=== PATIENT | female | born 1990 | race Caucasian/White ===

== ENCOUNTER 2023-11-19 07:25 | Inpatient (IN) ==
[2023-11-19] MEDS ORDERED: LIDOCAINE 1% LOCAL 20 ML VIAL INFIL PRN (07:34)
--- NOTE | 2023-11-19 07:38 | History & Physical Report ---
Date of Service November 19, 2023 Assessment & Plan (1) Encounter for induction of labor: Plan 33 y/o female at 41WGA, here for IOL: Troy bulb out Pitocin AROM as indicated Monitor heart tracing, category 1 Admission and Anticipated Discharge Date Admission Date: November 19, 2023 History of Present Illness Primary Care Provider: NO PCP 33 y/o female currently at 41WGA with an DILCIA 11/12/23 as determined by LMP, who is here for IOL. 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 Had regular appointments with OB Minimal Contractions + movement + some amount of fluid loss through cervical Troy denies Vaginal bleeding External FHT and external uterine monitors used: Category 1 tracing, baseline rate 140, moderate variability, irregular uterine contractions OB Labs: Blood Type A Positive 04/04/23 Antibody Screen NEGATIVE 04/04/23 Hemoglobin 9.1 g/dl (12.0-16.0) L 08/21/23 Hematocrit 28.3 % (37.0-47.0) L 08/21/23 Mean Corpuscular Volume 93.5 fL (80.0-100.0) 04/04/23 Platelet Count 277 K/uL (130-400) 04/04/23 Rubella IgG Antibody Immune (Immune) 04/04/23 Rapid Plasma Reagin Nonreactive (Nonreactive) 04/04/23 Hepatitis B Surface Antigen. NON-REACTIVE (NON-REACTIVE) 04/04/23 Hepatitis C Antibody (EIA) NON-REACTIVE (NON-REACTIVE) 04/04/23 HIV (1&2) Ag and Ab Confirmation NON-REACTIVE (NON-REACTIVE) 04/04/23 Glucose 1 Hour 50 gm Load 90 mg/dl (70-130) 08/21/23 OB Optional Labs: Chlamydia trachomatis RNA Not Detected (NotDetected) 04/04/23 Neisseria gonorrhoeae RNA Not Detected (NotDetected) 04/04/23 Thyroid Stimulating Hormone (TSH) 1.807 uIu/ml (0.300-4.500) 10/04/23 Labs Reviewed: Declines genetics--mln Allergies Allergy/AdvReac Type Severity Reaction Status Date / Time No Known Allergies Allergy Verified 11/18/23 19:20 Home Medications Medication Instructions Recorded Confirmed Type vit 168-iron 27 mg-folic 1 cap PO DAILY 03/27/23 11/19/23 History acid 800 mcg-omega3 235 mg capsule (One-A-Day -1) ferrous sulfate 325 mg (65 mg 325 mg PO DAILY 11/19/23 11/19/23 History iron) tablet (Iron (ferrous sulfate)) Patient History Surgical History [place] teeth extracted Family History Mother , Mother age 49 d/t malignant melanoma Malignant melanoma Aunt Breast cancer, Onset Age: 60 Other Dyslipidemia Hypertension Social History Smoking Status: Former smoker Second Hand Exposure: No; Hx Alcohol Use: No Hx Substance Use: No Preferred Language: Ethiopian Communication Ability: Effective Registered Nurse Obstetrics Required: No Beliefs That Will Affect Care: None marital status: marital status details: Khoa [phone] Current Living Situation: Spouse Current Living Situation Comment: Lives at home with , dog, and chicken. 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 No acute distress Cardiac: Regular rate and rhythm, no murmurs appreciated Respiratory: Lungs clear to auscultation bilaterally, No increased work of breathing Abdominal: Soft, non-tender, non-distended. Bowel sounds present. Gravid uterus. Extremities: No lower extremity edema, calves non-tender bilaterally FHT/Sonoita: Category 1 tracing, baseline rate 140, moderate variability, irregular uterine contractions : 4/75/-2 per attending exam Results & Data Vital Signs (Past 12 Hours) Vital Signs Pulse BP 11/19/23 07:37 88 115/73 Supervising Physician Co-Signing Physician Notes 33 yo G1 at 41 wga presents for late term iol. +FM; denies ctx, LOF, VB. Troy placed last evening. PNI: Pituitary macroadenoma. VSS, Fetus cat 1. Bulb palpated in the vagina and removed, SVE /-2 afterward. Will start pit, gbs neg, epidural prn Resident Activity Tracking Resident Involvement: Resident Care Provided Care Provided: OB Delivery
[2023-11-19 08:16] LABS: Hematocrit (blood only) 33.3 % (37.0-47.0); Hemoglobin 10.8 g/dl (12.0-16.0); Mean Corpuscular Hemoglobin 31.4 pg (25.0-34.0); Mean Corpuscular Hgb Conc 32.4 g/dL (32.0-36.0); Mean Corpuscular Volume 96.8 fL (80.0-100.0); Mean Platelet Volume 10.1 fL (9.4-12.4); Platelet Count 147 K/uL (130-400); RDW Standard Deviation 49.6 fL (36.4-46.3); Red Blood Count 3.44 M/uL (4.20-5.40); White Blood Count 6.12 K/ul (4.8-10.8)
[2023-11-19] MEDS: LACTATED RINGER'S 1,000 ML IV PRN (08:48)
[2023-11-19] MEDS: OXYTOCIN 30 UNITS/NSS 30 UNITS/500 ML BAG IV PRN ×2 (09:01→20:57)
--- NOTE | 2023-11-19 14:24 | Anesthesiology Consultation ---
Date of Service November 19, 2023 Assessment & Plan Chart Review Chart Review: Acceptable Risk for Labor Epidural Consults Requested none History Height/Weight Height: 5 ft 5 in Weight: 83.915 kg Allergies Allergy/AdvReac Type Severity Reaction Status Date / Time No Known Allergies Allergy Verified 11/18/23 19:20 Medications Home Medications Medication Instructions Recorded Confirmed Last Taken vit 168-iron 27 mg-folic 1 cap PO DAILY 03/27/23 11/19/23 11/19/23 acid 800 mcg-omega3 235 mg capsule (One-A-Day -1) ferrous sulfate 325 mg (65 mg 325 mg PO DAILY 11/19/23 11/19/23 11/18/23 iron) tablet (Iron (ferrous sulfate)) Active Medications Generic Name Dose Route Start Last Admin Trade Name Freq PRN Reason Stop Dose Admin Oxytocin 30 units in 500 mls @ 14 mls/hr 11/19/23 07:34 11/19/23 13:00 Pitocin 30 Units/Nss IV 11/21/23 07:33 0.84 units/hr .Q24H PRN 14 mls/hr Labor Induction/Augmentation Titration Protocol 0.84 UNITS/HR Lactated Ringer's 1,000 mls @ 125 mls/hr 11/19/23 07:34 11/19/23 14:20 Lr IV 11/21/23 07:33 999 mls/hr .Q8H PRN Administration L&D Protocol Protocol Past Family History Family History Mother , Mother age 49 d/t malignant melanoma Malignant melanoma Aunt Breast cancer, Onset Age: 60 Other Dyslipidemia Hypertension Past Surgical History Surgical History [place] teeth extracted Social History Smoking Status: Former smoker Hx Alcohol Use: No Hx Substance Use: No Physical Exam Vital Signs Last Vital Signs Temp 36.8 C 11/19/23 13:00 Pulse 70 11/19/23 14:11 Resp 24 11/19/23 13:00 BP 114/68 11/19/23 14:11 Testing Laboratory Results 11/19/23 07:54
[2023-11-19] MEDS ORDERED: diphenhydrAMINE 50 MG/ML VIAL IV PRN (14:25)
[2023-11-19] MEDS ORDERED: SODIUM CHLORIDE 0.9% PF INJ 10 ML VIAL EPI PRN (14:25)
[2023-11-19] MEDS ORDERED: ePHEDrine sulfate 50 MG/ML AMP IV PRN (14:25)
[2023-11-19] MEDS ORDERED: LIDOCAINE 2% MPF LOCAL 5 ML VIAL EPI PRN (14:25)
[2023-11-19] MEDS ORDERED: ROPIVACAINE 0.5% PF 5 MG/ML 20 ML VIAL EPI PRN (14:25)
[2023-11-19] MEDS ORDERED: fentaNYL citrate PF 100 MCG/2 ML VIAL EPI PRN (14:25)
[2023-11-19] MEDS ORDERED: BUPIVACAINE 0.25% PF 30 ML VIAL EPI PRN (14:25)
[2023-11-19] MEDS ORDERED: NALOXONE HCL 0.4 MG/1 ML VIAL/CARP IV PRN (14:25)
[2023-11-19] MEDS ORDERED: NALBUPHINE HCL 5 MG in SYRINGE 0 ML IV PRN (14:25)
[2023-11-19] MEDS ORDERED: NALOXONE HCL 1 MG in SODIUM CHLORIDE 0.9% 1,000 ML IV PRN (14:25)
[2023-11-19] MEDS ORDERED: fentANYL 2 MCG/ML BUPIVacaine 0.125%-NSS 100ML BAG EPI PRN (14:25)
[2023-11-19] MEDS: LIDOCAINE 2%/EPINEPHRINE 1:200,000 20 ML PF ONE (14:49)
[2023-11-19] MEDS: fentANYL 2 MCG/ML BUPIVacaine 0.125%-NSS 100ML BAG ONE (14:49)
--- NOTE | 2023-11-19 15:42 | Labor Progress Brief Note ---
Date of Service November 19, 2023 Subjective comfortable w/ epidural Assessment & Plan (1) Encounter for induction of labor: Plan: 33 yo G1 at 41 wga admitted for late term iol VSS Fetus cat 1 Labor - pit at 14, now s/p arom GBS neg epidural in place Admission and Anticipated Discharge Date Admission Date: November 19, 2023 Physical Exam Genitourinary: Manual OB Exam: + cervical dilation 5 cm, + cervical effacement 70%, + station -1 and + amniotic fluid (arom clear) OB Exam Monitor Tracing: + external FHT monitor used, + external uterine monitor used (q4) and + category I (135-140/mod/+accel/-decel) Results & Data Vital Signs (Past 12 Hours) Vital Signs Temp Pulse Resp BP Pulse Ox 11/19/23 15:34 100 11/19/23 15:34 106 H 11/19/23 15:34 80 11/19/23 15:34 103/62 11/19/23 15:29 98 11/19/23 15:29 122 H 11/19/23 15:28 67 11/19/23 15:28 100/62 11/19/23 15:24 100 11/19/23 15:24 61 11/19/23 15:24 103/63 11/19/23 15:20 66 11/19/23 15:20 101/61 11/19/23 15:19 100 11/19/23 15:19 67 11/19/23 15:15 68 11/19/23 15:15 102/58 L 11/19/23 15:14 100 11/19/23 15:14 69 11/19/23 15:09 100 11/19/23 15:09 70 11/19/23 15:08 71 11/19/23 15:08 100/62 11/19/23 15:04 100 11/19/23 15:04 96 H 11/19/23 15:03 73 11/19/23 15:03 107/65 11/19/23 15:01 75 11/19/23 15:01 109/63 11/19/23 14:59 100 11/19/23 14:59 78 11/19/23 14:59 71 11/19/23 14:59 103/62 11/19/23 14:57 75 11/19/23 14:57 102/63 11/19/23 14:55 75 11/19/23 14:55 104/64 11/19/23 14:54 100 11/19/23 14:54 74 11/19/23 14:53 74 11/19/23 14:53 108/66 11/19/23 14:51 81 11/19/23 14:51 102/64 11/19/23 14:49 100 11/19/23 14:49 87 11/19/23 14:49 87 11/19/23 14:49 102/66 11/19/23 14:47 79 11/19/23 14:47 116/67 11/19/23 14:44 100 11/19/23 14:44 75 11/19/23 14:44 118/60 11/19/23 14:41 83 11/19/23 14:41 113/66 11/19/23 14:39 100 11/19/23 14:39 84 11/19/23 14:39 112/71 11/19/23 14:34 100 11/19/23 14:34 90 11/19/23 14:29 100 11/19/23 14:29 77 11/19/23 14:11 70 11/19/23 14:11 114/68 11/19/23 13:11 65 11/19/23 13:11 108/69 11/19/23 13:00 71 11/19/23 13:00 98.2 F 71 24 118/63 11/19/23 12:11 68 11/19/23 12:11 107/71 11/19/23 11:46 99.1 F 61 104/68 11/19/23 11:46 61 11/19/23 11:46 104/68 11/19/23 10:10 74 11/19/23 10:10 108/69 11/19/23 10:00 76 11/19/23 10:00 104/66 11/19/23 09:01 67 11/19/23 09:01 102/69 11/19/23 07:37 99.1 F 88 18 115/73 Coding Level of Care Code None Diagnoses Encounter for induction of labor Z34.90
[2023-11-19] MEDS: SODIUM CHLORIDE 0.9% PF INJ 10 ML VIAL ONE (18:18)
[2023-11-19] MEDS: ePHEDrine sulfate 50 MG/ML AMP ONE (18:18)
[2023-11-19] MEDS: fentaNYL citrate PF 100 MCG/2 ML VIAL ONE (18:18)
[2023-11-19] MEDS: BUPIVACAINE 0.25% PF 30 ML VIAL ONE (18:18)
[2023-11-19] MEDS: BUPIVACAINE 0.25% PF 30 ML VIAL EPI STA (18:29)
[2023-11-19] MEDS: fentaNYL citrate PF 100 MCG/2 ML VIAL EPI STA (18:29)
[2023-11-19] MEDS: SODIUM CHLORIDE 0.9% PF INJ 10 ML VIAL EPI STA (18:30)
[2023-11-19] MEDS: LIDOCAINE 2%/EPINEPHRINE 1:200,000 20 ML PF EPI STA (18:30)
--- NOTE | 2023-11-19 19:54 | Labor Progress Brief Note ---
Date of Service November 19, 2023 Subjective just pushed button to get a little more comfortable, had tried a few pushes earlier but then opted to labor down Assessment & Plan (1) Encounter for induction of labor: Plan: 33 yo G1 at 41 wga admitted for late term iol VSS Fetus cat 1 Labor - pit at 16 and complete, had to push button to get a little mroe comfortable while laboring down after few attempts at pushing. Laying on other side now to try to get more comfortable and then re-eval to start pushing GBS neg epidural in place Admission and Anticipated Discharge Date Admission Date: November 19, 2023 Physical Exam Genitourinary: OB Exam Monitor Tracing: + external FHT monitor used, + external uterine monitor used (q2-4) and + category I (140/mod/+accel/-decel) SVE complete/+1 small amount of blood seen on chux with a small clot Results & Data Vital Signs (Past 12 Hours) Vital Signs Temp Pulse Resp BP Pulse Ox 11/19/23 19:49 100 11/19/23 19:49 76 11/19/23 19:44 100 11/19/23 19:44 81 11/19/23 19:44 106/69 11/19/23 19:39 100 11/19/23 19:39 89 11/19/23 19:34 100 11/19/23 19:34 79 11/19/23 19:30 82 11/19/23 19:30 108/70 11/19/23 19:29 100 11/19/23 19:29 81 11/19/23 19:24 100 11/19/23 19:24 84 11/19/23 19:19 100 11/19/23 19:19 88 11/19/23 19:14 100 11/19/23 19:14 79 11/19/23 19:14 83 11/19/23 19:14 114/56 L 11/19/23 19:09 100 11/19/23 19:09 81 11/19/23 19:04 100 11/19/23 19:04 77 11/19/23 19:03 18 11/19/23 19:03 97.9 F 18 11/19/23 18:59 100 11/19/23 18:59 89 11/19/23 18:59 81 11/19/23 18:59 105/64 11/19/23 18:54 100 11/19/23 18:54 86 11/19/23 18:49 100 11/19/23 18:49 88 11/19/23 18:45 76 11/19/23 18:45 114/70 11/19/23 18:44 100 11/19/23 18:44 77 11/19/23 18:39 100 11/19/23 18:39 76 11/19/23 18:34 100 11/19/23 18:34 85 11/19/23 18:29 100 11/19/23 18:29 95 H 11/19/23 18:29 100/74 11/19/23 18:24 100 11/19/23 18:24 77 11/19/23 18:19 100 11/19/23 18:19 85 11/19/23 18:15 74 11/19/23 18:15 105/60 11/19/23 18:14 100 11/19/23 18:14 69 11/19/23 18:09 98 11/19/23 18:09 130 H 11/19/23 18:06 93 11/19/23 18:06 99 H 11/19/23 18:04 100 11/19/23 18:04 74 11/19/23 17:59 18 11/19/23 17:59 99.0 F 18 11/19/23 17:59 100 11/19/23 17:59 73 11/19/23 17:59 111/69 11/19/23 17:55 92 11/19/23 17:55 80 11/19/23 17:54 97 11/19/23 17:54 81 11/19/23 17:54 113/73 11/19/23 17:49 100 11/19/23 17:49 67 11/19/23 17:44 100 11/19/23 17:44 68 11/19/23 17:39 100 11/19/23 17:39 65 11/19/23 17:35 68 11/19/23 17:35 100/58 L 11/19/23 17:34 100 11/19/23 17:34 67 11/19/23 17:29 100 11/19/23 17:29 69 11/19/23 17:24 100 11/19/23 17:24 68 11/19/23 17:19 100 11/19/23 17:19 65 11/19/23 17:14 97 11/19/23 17:14 62 11/19/23 17:14 91 11/19/23 17:14 70 11/19/23 17:10 18 11/19/23 17:10 18 11/19/23 17:09 100 11/19/23 17:09 67 11/19/23 17:04 100 11/19/23 17:04 69 11/19/23 16:59 100 11/19/23 16:59 66 11/19/23 16:54 100 11/19/23 16:54 72 11/19/23 16:49 100 11/19/23 16:49 72 11/19/23 16:44 100 11/19/23 16:44 60 11/19/23 16:39 100 11/19/23 16:39 64 11/19/23 16:34 100 11/19/23 16:34 66 11/19/23 16:29 100 11/19/23 16:29 63 11/19/23 16:29 62 11/19/23 16:29 99/58 L 11/19/23 16:24 100 11/19/23 16:24 69 11/19/23 16:19 100 11/19/23 16:19 67 11/19/23 16:15 65 11/19/23 16:15 98/60 L 11/19/23 16:14 100 11/19/23 16:14 65 11/19/23 16:10 18 11/19/23 16:10 18 11/19/23 16:09 100 11/19/23 16:09 66 11/19/23 16:04 99 11/19/23 16:04 70 11/19/23 16:00 67 11/19/23 16:00 98/59 L 11/19/23 15:59 99 11/19/23 15:59 66 11/19/23 15:55 18 11/19/23 15:55 18 11/19/23 15:54 99 11/19/23 15:54 68 11/19/23 15:49 100 11/19/23 15:49 69 11/19/23 15:44 99 11/19/23 15:44 67 11/19/23 15:44 67 11/19/23 15:44 99.1 F 66 18 100/59 L 99 11/19/23 15:40 18 11/19/23 15:40 18 11/19/23 15:39 100 11/19/23 15:39 77 11/19/23 15:34 100 11/19/23 15:34 106 H 11/19/23 15:34 80 11/19/23 15:34 103/62 11/19/23 15:29 98 11/19/23 15:29 122 H 11/19/23 15:28 67 11/19/23 15:28 100/62 11/19/23 15:25 18 11/19/23 15:25 18 11/19/23 15:24 100 11/19/23 15:24 61 11/19/23 15:24 103/63 11/19/23 15:20 66 11/19/23 15:20 101/61 11/19/23 15:19 100 11/19/23 15:19 67 11/19/23 15:15 68 11/19/23 15:15 102/58 L 11/19/23 15:14 100 11/19/23 15:14 69 11/19/23 15:10 18 11/19/23 15:10 18 11/19/23 15:09 100 11/19/23 15:09 70 11/19/23 15:08 71 11/19/23 15:08 100/62 11/19/23 15:04 100 11/19/23 15:04 96 H 11/19/23 15:03 73 11/19/23 15:03 107/65 11/19/23 15:01 75 11/19/23 15:01 109/63 11/19/23 14:59 100 11/19/23 14:59 78 11/19/23 14:59 71 11/19/23 14:59 103/62 11/19/23 14:57 75 11/19/23 14:57 102/63 11/19/23 14:55 20 11/19/23 14:55 20 11/19/23 14:55 75 11/19/23 14:55 104/64 11/19/23 14:54 100 11/19/23 14:54 74 11/19/23 14:53 74 11/19/23 14:53 108/66 11/19/23 14:51 81 11/19/23 14:51 102/64 11/19/23 14:50 20 11/19/23 14:50 20 11/19/23 14:49 100 11/19/23 14:49 87 11/19/23 14:49 87 11/19/23 14:49 102/66 11/19/23 14:47 79 11/19/23 14:47 116/67 11/19/23 14:45 20 11/19/23 14:45 20 11/19/23 14:44 100 11/19/23 14:44 75 11/19/23 14:44 118/60 11/19/23 14:41 83 11/19/23 14:41 113/66 11/19/23 14:39 100 11/19/23 14:39 84 11/19/23 14:39 112/71 11/19/23 14:34 100 11/19/23 14:34 90 11/19/23 14:29 100 11/19/23 14:29 77 11/19/23 14:11 70 11/19/23 14:11 114/68 11/19/23 13:11 65 11/19/23 13:11 108/69 11/19/23 13:00 71 11/19/23 13:00 98.2 F 71 24 118/63 11/19/23 12:11 68 11/19/23 12:11 107/71 11/19/23 11:46 99.1 F 61 104/68 11/19/23 11:46 61 11/19/23 11:46 104/68 11/19/23 10:10 74 11/19/23 10:10 108/69 11/19/23 10:00 76 11/19/23 10:00 104/66 11/19/23 09:01 67 11/19/23 09:01 102/69 Coding Level of Care Code None Diagnoses Encounter for induction of labor Z34.90
[2023-11-19] MEDS: cefOXitin 2,000 MG in DEXTROSE 5 % MINI-B 50 ML IV ONE (21:21)
--- NOTE | 2023-11-19 21:29 | Delivery Summary ---
Vaginal Delivery Summary Date of Service November 19, 2023 Vaginal Delivery Summary and 3rd Degree LAC PREOPERATIVE DIAGNOSIS: 1. Single intrauterine at 41 wga 2. Late term IOL 3. Pituitary macroadenoma POSTOPERATIVE DIAGNOSIS: 1. Single intrauterine at 41 wga 2. Late term IOL 3. Pituitary macroadenoma 4. Delivered PROCEDURE: 1. Normal spontaneous vaginal delivery. SURGEON: Lamar Gruber MD ANESTHESIA: Epidural. QUANTITATIVE BLOOD LOSS: 321 mL (see findings) FLUIDS: Continuous LR. URINE OUTPUT: 100ml COMPLICATIONS: None. CONDITION: Stable. INDICATIONS: 33 yo G1 at 41 wga presented for late term IOL. Troy bulb was placed last evening and removed this morning and found to be 4cm. She was started on pitocin and received an epidural for pain control. She underwent arom and progressed to complete and desired to push FINDINGS: A viable female infant, weight pending with Apgars of 8 and 9 at 1 and 5 minutes respectively. Had bleeding during pushing of 318ml. QBL was 321ml after delivery however majority still related to laceration repair. Total QBL was 639 with pushing and delivery SPECIMEN: Cord blood OPERATIVE REPORT: The patient progressed to 10 cm, 100% effaced and +2 station, pushed over intact perineum with anesthesia to deliver a viable female , weight and Apgars as above. Head of delivered in KISNEY position. No nuchal cord was present. Body and shoulders were delivered without difficulty. was delivered to maternal abdomen and nursing staff. Delayed cord clamping was performed for 60 seconds. Cord was clamped and cut. Cord blood was obtained. Placenta delivered spontaneously intact with 3-vessel cord. IV oxytocin and fundal massage were given for excellent hemostasis. Vagina, cervix, perineum, and placenta were inspected. A third degree laceration was noted with rectal exam confirming no involvement of the rectum. External anal sphincter was repaired in the usual fashion with 2-0 vicryl. Internal anal sphincter was re- inforced with 2-0 vicryl as well. Remainder of repair was performed using 3-0 vicryl. There was excellent hemostasis. There was a left vaginal wall abrasion that was suspected to be cause of bleeding with pushing but did not need reinforcement as it was hemostatic at time of repair. Rectal exam was again performed and confirmed no stitches in the vagina. One dose of cefoxitin was administered. There was excellent hemostasis. Sponge and needle counts correct x2. No sponges were left behind. Mother and stable in immediate period. [facility] Vaginal Delivery Charge Vaginal Delivery Codes: 51023 global code for the antepartum, delivery, and post- Delivery Type Details: and 3rd Degree LAC
[2023-11-19] MEDS ORDERED: HYDROCORTISONE ACETATE 25 MG SUPP PR PRN (21:34)
[2023-11-19] MEDS ORDERED: ACETAMINOPHEN 325 MG TAB PO PRN (21:34)
[2023-11-19] MEDS ORDERED: OXYTOCIN 30 UNITS/NSS 30 UNITS/500 ML BAG IV PRN (21:34)
--- NOTE | 2023-11-19 22:56 | Anesthesia Procedure Note ---
Date of Service November 19, 2023 Anesthesia Post Epidural Note Vital Signs Vital Signs: Temp Pulse Resp BP Pulse Ox 36.6 C 83 18 93/60 L 100 11/19/23 19:03 11/19/23 22:44 11/19/23 19:03 11/19/23 22:44 11/19/23 20:34 Pain Intensity Lower Medial Abdomen: Pain Intensity: 0 Notes Mental Status: alert / awake / arousable Nausea / Vomiting: adequately controlled Pain: adequately controlled Airway Patency, RR, SpO2: stable & adequate BP & HR: stable & adequate Hydration State: stable & adequate Neuraxial Anesthesia: was administered and sensory block is resolving Anesthetic Complications: no major complications apparent and Pt Satisfied with anesthetic care Epidural: Removed without complications and With tip intact
[2023-11-19] MEDS: DIPHTHER/TETAN/PERTUS Vaccine (Tdap, Adol/Adult) 0.5mL IM ONE (22:57)
[2023-11-19] MEDS: BENZOCAINE 20% SPRY 85 APPLN/85 GM CAN EXT PRN (22:57)
[2023-11-19] MEDS: IBUPROFEN 600 MG TAB PO PRN (22:58)
--- NOTE | 2023-11-20 06:20 | Obstetrical Progress Note ---
Date of Service <Anirudh Sanchez DO - Last Filed: 11/20/23 06:22> November 20, 2023 Assessment & Plan <Anirudh Sanchez DO - Last Filed: 11/20/23 06:22> (1) Encounter for assessment: Plan 33 y/o PPD#1: Eating well, voiding well, ambulating well Vitals reviewed, WNL Pain well controlled with Motrin Routine post care - OOB, ambulation, diet progression as tolerated Will have 6 week follow up with Dr. Gruber <Lamar Gruber MD - Last Filed: 11/20/23 07:57> (1) Encounter for assessment: Subjective <Anirudh Sanchez DO - Last Filed: 11/20/23 06:22> Ambulation: ambulating normally Voiding: no voiding problems Diet Tolerance:: regular diet Lochia:: Moderate Feeding Type:: breast feeding pain well controlled with Motrin Review of Systems -Denies fever or chills -Denies dyspnea, chest pain, or palpitations -Denies dysuria -Denies headache or changes in vision Physical Exam <Anirudh Snachez DO - Last Filed: 11/20/23 06:22> General: Alert and oriented. No acute distress Cardiac: Regular rate and rhythm, no murmurs appreciated Respiratory: Lungs clear to auscultation bilaterally, No increased work of breathing Abdominal: Soft, non-tender, non-distended. Bowel sounds present. Uterus: Uterine fundus firm, palpable below umbilicus Extremities: No lower extremity edema, calves non-tender bilaterally Results & Data <Anirudh Sanchez DO - Last Filed: 11/20/23 06:22> Vital Signs (Past 12 Hours) Vital Signs Temp Pulse Pulse Resp BP BP Pulse Ox 11/20/23 04:49 36.8 C 62 18 100/66 11/20/23 00:45 36.7 C 106 H 18 103/62 11/20/23 00:13 106 H 103/62 11/19/23 23:59 104 H 11/19/23 23:59 105/56 L 11/19/23 23:43 94 H 11/19/23 23:43 100/61 11/19/23 23:28 92 H 11/19/23 23:28 104/61 11/19/23 23:13 98 H 11/19/23 23:13 104/60 11/19/23 22:58 93 H 11/19/23 22:58 96/59 L 11/19/23 22:44 83 11/19/23 22:44 93/60 L 11/19/23 22:28 102 H 11/19/23 22:28 102/59 L 11/19/23 22:14 79 11/19/23 22:14 103/55 L 11/19/23 21:59 104 H 11/19/23 21:59 117/66 11/19/23 21:43 75 11/19/23 21:43 108/67 11/19/23 21:29 78 11/19/23 21:29 106/65 11/19/23 21:14 90 11/19/23 21:14 101/65 11/19/23 20:59 85 11/19/23 20:59 106/65 11/19/23 20:44 93 H 11/19/23 20:44 120/63 11/19/23 20:34 100 11/19/23 20:34 98 H 11/19/23 20:29 100 11/19/23 20:29 137 H 11/19/23 20:29 96 H 11/19/23 20:29 102/68 11/19/23 20:24 100 11/19/23 20:24 113 H 11/19/23 20:19 100 11/19/23 20:19 93 H 11/19/23 20:14 100 11/19/23 20:14 97 H 11/19/23 20:13 105 H 11/19/23 20:13 94/59 L 11/19/23 20:09 100 11/19/23 20:09 135 H 11/19/23 20:04 100 11/19/23 20:04 78 11/19/23 19:59 100 11/19/23 19:59 75 11/19/23 19:59 71 11/19/23 19:59 87/53 L 11/19/23 19:54 100 11/19/23 19:54 80 11/19/23 19:49 100 11/19/23 19:49 76 11/19/23 19:44 100 11/19/23 19:44 81 11/19/23 19:44 106/69 0624/24 19:39 100 11/19/23 19:39 89 11/19/23 19:34 100 11/19/23 19:34 79 11/19/23 19:30 82 11/19/23 19:30 108/70 11/19/23 19:29 100 11/19/23 19:29 81 11/19/23 19:24 100 11/19/23 19:24 84 11/19/23 19:19 100 11/19/23 19:19 88 11/19/23 19:14 100 11/19/23 19:14 79 11/19/23 19:14 83 11/19/23 19:14 114/56 L 11/19/23 19:09 100 11/19/23 19:09 81 11/19/23 19:04 100 11/19/23 19:04 77 11/19/23 19:03 18 11/19/23 19:03 36.6 C 18 11/19/23 18:59 100 11/19/23 18:59 89 11/19/23 18:59 81 11/19/23 18:59 105/64 11/19/23 18:54 100 11/19/23 18:54 86 11/19/23 18:49 100 11/19/23 18:49 88 11/19/23 18:45 76 11/19/23 18:45 114/70 11/19/23 18:44 100 11/19/23 18:44 77 11/19/23 18:39 100 11/19/23 18:39 76 11/19/23 18:34 100 11/19/23 18:34 85 11/19/23 18:29 100 11/19/23 18:29 95 H 11/19/23 18:29 100/74 11/19/23 18:24 100 11/19/23 18:24 77 Supervising Physician <Lamar Gruber MD - Last Filed: 11/20/23 07:57> Co-Signing Physician Notes Resident Physician Supervision Note: I interviewed and examined the patient. Discussed with Dr. Sanchez and agree with findings and plan as documented in the note. Any exceptions or clarifications are listed here: PP1 s/p , doing well. VSS, exam benign and wnl. Continue routine care Documented By: Lamar Gruber MD Resident Activity Tracking <Anirudh Sanchez, DO - Last Filed: 11/20/23 06:22> Resident Involvement: Resident Care Provided Care Provided: OB Delivery
[2023-11-20 06:51] LABS: Hematocrit (blood only) 27.5 % (37.0-47.0); Hemoglobin 9.1 g/dl (12.0-16.0); Mean Corpuscular Hgb Conc 33.1 g/dL (32.0-36.0); Mean Corpuscular Volume 96.8 fL (80.0-100.0); Mean Platelet Volume 10.5 fL (9.4-12.4); Platelet Count 145 K/uL (130-400); RDW Coefficient of Variation 13.9 % (11.5-14.5); RDW Standard Deviation 49.6 fL (36.4-46.3); Red Blood Count 2.84 M/uL (4.20-5.40); White Blood Count 12.75 K/ul (4.8-10.8)
[2023-11-20] MEDS: FERROUS SULFATE 325 MG TAB PO SCH (07:11)
[2023-11-20] MEDS: DOCUSATE SODIUM 100 MG CAP PO SCH (07:11)
[2023-11-20] MEDS: PRENATAL VITAMIN 1 TAB PO SCH (07:11)
[2023-11-20] MEDS: bisacodyL 5 MG TABEC PO SCH (23:34)
--- NOTE | 2023-11-21 06:48 | Obstetrical Progress Note ---
Date of Service <Anirudh Daniel - Last Filed: 11/21/23 06:49> November 21, 2023 Assessment & Plan <Anirudh Sanchez - Last Filed: 11/21/23 06:49> (1) Encounter for assessment: Plan 33 y/o PPD#2: Eating well, voiding well, ambulating well Vitals reviewed, WNL Pain well controlled with Motrin Routine post care - OOB, ambulation, diet progression as tolerated Will have 6 week follow up with Dr. Gruber <Chelsey Bautista MD, FACOG - Last Filed: 11/21/23 08:45> (1) Encounter for assessment: Subjective <Anirudh Sanchez - Last Filed: 11/21/23 06:49> Ambulation: ambulating normally Voiding: no voiding problems Diet Tolerance:: regular diet Lochia:: Small Feeding Type:: breast feeding pain well controlled with Motrin Review of Systems -Denies fever or chills -Denies dyspnea, chest pain, or palpitations -Denies dysuria -Denies headache or changes in vision Physical Exam <Anirudh Sanchez - Last Filed: 11/21/23 06:49> General: Alert and oriented. No acute distress Cardiac: Regular rate and rhythm, no murmurs appreciated Respiratory: Lungs clear to auscultation bilaterally, No increased work of breathing Abdominal: Soft, non-tender, non-distended. Bowel sounds present. Uterus: Uterine fundus firm, palpable below umbilicus Extremities: No lower extremity edema, calves non-tender bilaterally Results & Data <Anirudh Sanchez - Last Filed: 11/21/23 06:49> Vital Signs (Past 12 Hours) Vital Signs Temp Pulse Resp BP Pulse Ox O2 Del Method 11/21/23 00:00 36.4 C L 73 16 99/64 L 98 Room Air 11/20/23 20:00 Room Air 11/20/23 20:00 36.7 C 82 16 105/68 100 Room Air Supervising Physician <Chelsey Bautitsa MD, FACOG - Last Filed: 11/21/23 08:45> Co-Signing Physician Notes Resident Physician Supervision Note: I interviewed and examined the patient. Discussed with Dr. Sanchez and agree with findings and plan as documented in the note. Any exceptions or clarifications are listed here: [None] Documented By: Chelsey Bautista MD, FACOG Resident Activity Tracking <Anirudh Sanchez DO - Last Filed: 11/21/23 06:49> Resident Involvement: Resident Care Provided Care Provided: OB Delivery
== END 2023-11-21 10:56 | disposition home or self-care (01) | DRG 768 ==
LOC: 4S1 07:25 → 4E2 11-20 00:57